=== PATIENT | female | born 1995 | race Two or more races ===

== ENCOUNTER 2021-07-07 08:00 | Outpatient (CLI) | payer OTHER ==
[~2021-07-07 08:00] MED LIST: IMODIUM A-D2 MG PO; KETO10TA2 PO; PEPCID40 MG PO; PHENERGAN25 MG PO
== END 2021-07-07 08:30 | disposition home or self-care (01) ==
LOC: PPH VACUNA 08:00
DX: Z23 Encounter for immunization (principal)